=== PATIENT | male | born 1935 | race Caucasian/White ===

== ENCOUNTER 2020-02-19 23:06 | Inpatient (IN) | payer MEDICARE, BC ==
[~2020-02-19] VITALS: Ht 170.2 cm; Wt 67.0 kg
[~2020-02-19 23:06] MED LIST: ADDERALL30 MG PO; ASPIRIN 81M81 MG/TA2 PO; CARDIZEM 30MG T30 MG PO; CARDIZEM120 MG PO; FLOMAX 0.40.4 MG/CAP PO; LEXAPRO 10MG10 MG PO; MULTAQ400 MG PO; MULTI VITAMINS1 TAB PO; NORCO 325 MG-101 TAB PO; VIAGRA 25MG TAB25 MG PO; XARELTO10 MG PO
[2020-02-19 23:37] LABS: BASO % 0.4 % (0.0-2.0); EOS # 0.2 (0.0-0.7); EOS % 2.4 % (0-4.0); GRAN % 66.5 % (42.2-75.2); LYMPH # 1.5 (1.2-3.4); LYMPH % 19.5 % (20.0-51.0); MEAN CELL VOLUME 85 fl (80.0-100.0); MEAN CORPUSCULAR HGB CONC 32 g/dl (33.0-37.0); MEAN PLATELET VOLUME 9.1 fl (7.4-10.4); MONO # 0.8 (0.1-0.6); MONO % 10.8 % (1.7-9.3); PLATELET COUNT 372 K/mm3 (130-400); RED BLOOD COUNT 2.28 M/mm3 (4.20-5.60); REDCELL DISTRIBUTION WIDTH-CV 15.8 % (11.5-14.5)
[2020-02-19 23:39] LABS: INR 2.7 (0.8-3.0); PROTHROMBIN TIME 32.7 SECONDS (9.7-12.8)
[2020-02-19 23:42] LABS: ALANINE AMINOTRANSFERASE 10 U/L (4-49); ALBUMIN 3.3 gm/dL (3.5-5.0); ALKALINE PHOSPHATASE 56 U/L (50-136); ANION GAP 6 mmol/L (7-16); AST,SGOT 23 U/L (15-37); BILIRUBIN,TOTAL 0.3 mg/dL (0.0-1.0); BLOOD UREA NITROGEN 18 mg/dL (9-20); CALCIUM 8.5 mg/dL (8.4-10.2); CARBON DIOXIDE 22 mmol/L (22-30); CHLORIDE 106 mmol/L (98-107); CREATININE, serum 1.35 (0.66-1.25); GLUCOSE 113 mg/dL (74-106); LIPASE 105 U/L (23-300); POTASSIUM 3.6 mmol/L (3.4-5.0); SODIUM 133 mmol/L (137-145); TOTAL PROTEIN 6.1 gm/dL (6.4-8.2)
[2020-02-19 23:46] LABS: HEMATOCRIT 19.3 % (42.0-52.0); HEMOGLOBIN 6.2 g/dl (13.5-18.0); MEAN CORPUSCULAR HEMOGLOBIN 27 pg (27.0-31.0)
[2020-02-19 23:54] LABS: TROPONIN-I < 0.012 ng/mL (0.000-0.035)
[2020-02-20] VITALS (18 sets, daily range): BP systolic 100–136; BP diastolic 53–89; PULSE 74–92; TEMP 97.9–99.3
--- NOTE | 2020-02-20 02:00 | NUR ---
Patient to medical room 357 at this time with ER nurse. He is able to ambulate from stretcher to bed easily. He does not appear SOA at this time. He is satting 97% on RA. Lung sounds are clear, heart sounds are normal/regular. Pulses 2/2. Patient is alert and oriented but says he "has always been bad with answering questions". His complexion appears pale but no other skin issues are apparent. He does have a R groin hernia. He also has a RLQ colostomy with an additional opening on the L side of the abdomen, which is packed and covered with tape. No edema or pain is present. Will continue to monitor.
--- NOTE | 2020-02-20 02:30 | NUR ---
Blood transfusion (1 unit PRBC) started at this time. Patient educated about transfusion reaction symptoms. Will continue to monitor.
[2020-02-20] MEDS ORDERED: EFFEXOR-XR150 MG PO (03:14)
[2020-02-20] MEDS ORDERED: CARDIZEM CD 12120 MG PO (03:15)
--- NOTE | 2020-02-20 05:20 | NUR ---
Blood transfusion stopped at this time. Patient tolerated transfusion of 310 ml of PRBC well without any reaction symptoms. Will continue to monitor.
[2020-02-20 08:07] LABS: BASO % 0.5 % (0.0-2.0); EOS # 0.3 (0.0-0.7); EOS % 4.3 % (0-4.0); GRAN # 3.5 (1.4-6.5); LYMPH # 1.9 (1.2-3.4); LYMPH % 29.3 % (20.0-51.0); MEAN CELL VOLUME 84 fl (80.0-100.0); MEAN CORPUSCULAR HGB CONC 32 g/dl (33.0-37.0); MEAN PLATELET VOLUME 9.2 fl (7.4-10.4); MONO # 0.8 (0.1-0.6); MONO % 12.7 % (1.7-9.3); PLATELET COUNT 343 K/mm3 (130-400); RED BLOOD COUNT 2.46 M/mm3 (4.20-5.60); REDCELL DISTRIBUTION WIDTH-CV 15.9 % (11.5-14.5)
[2020-02-20 08:08] LABS: HEMOGLOBIN 6.6 g/dl (13.5-18.0); MEAN CORPUSCULAR HEMOGLOBIN 27 pg (27.0-31.0)
[2020-02-20 08:09] LABS: HEMATOCRIT 20.6 % (42.0-52.0)
[2020-02-20 08:11] LABS: CALCIUM 7.8 mg/dL (8.4-10.2); CREATININE, serum 1.25 (0.66-1.25); POTASSIUM 3.6 mmol/L (3.4-5.0)
--- NOTE | 2020-02-20 10:19 | NUR ---
Assessment complete. Pt resting in bed, easily arousable upon entry. Pt states that he feels fine this morning, he is just hungry. No pain or discomfort reported. Reported SOB while ambulating to the restrom but no issues while at rest. Pt was concerned about his anti-depressant medication, that was handled by MUNA Tavarez, medication is avaliable for him. IV site CD&I, currently infusing NS @ 125 ml/hr at this time. Spoke with his ex- and his daughter from [place] already today and they are aware of his situation. Pt is also aware of his POC. No other needs at this time. Call light is in reach.
[2020-02-20 10:57] LABS: HEMATOCRIT 20.7 % (42.0-52.0); HEMOGLOBIN 6.7 g/dl (13.5-18.0)
--- NOTE | 2020-02-20 11:30 | NUR ---
Transfusion started. Monitoring pt per protocol at this time. Pt states he feels fine.Infusion rate started at 60ml/hr
--- NOTE | 2020-02-20 11:50 | NUR ---
Infusion rate canged to 90 ml/hr. Pt is tolerating well. Vitals are stable. Continuing to monior at this time.
--- NOTE | 2020-02-20 12:15 | NUR ---
Infusion rate increase to 120 ml/hr. Pt continues to tolerate well. Will monitor.
--- NOTE | 2020-02-20 13:13 | NUR ---
SW met with patient at the door to discuss discharge planning. Patient currently lives alone in [facility]. He reported that he has been independent with no concerns. Patient does not have a DPOA, and he uses a walking stick occassionally. Patient reports that his PCP is Dr. Camp, and he does have " a bunch" of upcoming appointments. Patient reports that he gets his medications from [facility] with no concerns. Patient declined a need for any services at this time.
--- NOTE | 2020-02-20 17:31 | NUR ---
Patient has had a good day. He recieved another unit of blood and understands why this may help his symptoms. He tolerated the transfusion very well. His colostomy site is CD&I. He takes care of this himself and does not want help. He has requested a new hernia belt because the one he wore here got soiled on admit. I searched and asked all day but we do not have them here at the hospital. I will inform kiln packer. He has had no complaints of pain or discomfort all day. He requested more colostomy bags, 70mm. I was able to find these but they are apparently slightly different then then the ones he normally uses and he was not sure he would like the ones we had. States he brought some and will see if he needs them later. No other needs. Independent in the room with no issues. Fluids infusing at 75 ml/hr. Call light in reach.
[2020-02-20 18:48] LABS: HEMATOCRIT 22.7 % (42.0-52.0); HEMOGLOBIN 7.5 g/dl (13.5-18.0)
--- NOTE | 2020-02-20 20:00 | NUR ---
At time of assessment, patient is sitting up in bed awake. He is alert and oriented and does not complain of any pain. Heart sounds are normal/regular, lung sounds are clear, pulses are 2/2. No edema is present. Fluids are running at 75 ml/hr. No concerns at this time. Will continue to monitor.
[2020-02-21 03:08] LABS: HEMATOCRIT 22.3 % (42.0-52.0); HEMOGLOBIN 7.4 g/dl (13.5-18.0)
[2020-02-21 03:16] VITALS: BP 108/56; PULSE 73; TEMP 98
--- NOTE | 2020-02-21 06:08 | NUR ---
Patient has slept throughout the night with no complaints of pain or concerns. Hgb over the night was 7.5. MUNA Norris notified of this number and she did not request blood transfusion. Will continue to monitor.
[2020-02-21 07:10] LABS: BASO % 0.5 % (0.0-2.0); EOS # 0.5 (0.0-0.7); EOS % 8.1 % (0-4.0); GRAN # 2.9 (1.4-6.5); GRAN % 47.8 % (42.2-75.2); LYMPH # 1.8 (1.2-3.4); LYMPH % 29.8 % (20.0-51.0); MEAN CELL VOLUME 85 fl (80.0-100.0); MEAN CORPUSCULAR HGB CONC 33 g/dl (33.0-37.0); MEAN PLATELET VOLUME 9.2 fl (7.4-10.4); MONO # 0.8 (0.1-0.6); MONO % 13.3 % (1.7-9.3); PLATELET COUNT 322 K/mm3 (130-400); REDCELL DISTRIBUTION WIDTH-CV 15.7 % (11.5-14.5)
[2020-02-21 07:15] LABS: HEMATOCRIT 22.1 % (42.0-52.0); HEMOGLOBIN 7.3 g/dl (13.5-18.0); MEAN CORPUSCULAR HEMOGLOBIN 28 pg (27.0-31.0)
[2020-02-21 07:23] LABS: PROTHROMBIN TIME 12.2 SECONDS (9.7-12.8)
--- NOTE | 2020-02-21 07:47 | NUR ---
Report rcvd from JINA Pat.
--- NOTE | 2020-02-21 08:44 | NUR ---
Pt laying in bed, states "I'm not getting along with the broth anymore". He is saying he would like something more substantial. Pt has no other c/o pain or discomfort at this time. Call light at bedside. No further concerns.
[2020-02-21 08:55] VITALS: BP 102/59; PULSE 70; TEMP 97.1
[2020-02-21 11:48] VITALS: BP 123/69; PULSE 73; TEMP 97.6
[2020-02-21 16:45] VITALS: BP 114/61; PULSE 77; TEMP 97.3
--- NOTE | 2020-02-21 17:02 | NUR ---
Senior Art Director met with patient to discuss discharge planning. Patient lives alone in [place] and plans to return home upon discharge. Patient sees Dr. Marcelle Camp for primary care and obtains medications from [facility] pharmacy with no difficulties. Patient states he struggles with depression but has medication prescribed by Dr. Camp. Patient declined information about counseling or therapy. Patient has a walking stick he uses as needed and is independent with ADLS. Patient does not have DPOA-HC but was interested in obtaining the form. SW provided. Patient's daughter's Jana (ph#[phone]) and Leonarda (ph#[phone]) are his next of kin. SW to continue to follow as needed.
[2020-02-21 19:39] VITALS: BP 107/51; PULSE 81; TEMP 98.4
--- NOTE | 2020-02-21 19:44 | NUR ---
Report given to JINA Jasmine. Pt resting in room upon bedside report. Pt has no c/o of pain or discomfort at this time. No further concerns.
--- NOTE | 2020-02-21 20:15 | NUR ---
Pt resting in bed. No distress noted. Respirations even and unlabored. Lungs clear. [place], soft and nontender. BS+. RLQ colostomy- self care. BM is light brown in color. IV to R AC. Pt denies needs.
[2020-02-21 23:06] VITALS: BP 108/64; PULSE 81; TEMP 98.5
[2020-02-22] VITALS (7 sets, daily range): BP systolic 107–137; BP diastolic 58–76; PULSE 78–84; TEMP 97.8–99.5
[2020-02-22 06:34] LABS: BASO % 0.3 % (0.0-2.0); EOS # 0.5 (0.0-0.7); EOS % 5.8 % (0-4.0); GRAN # 4.9 (1.4-6.5); GRAN % 62.9 % (42.2-75.2); LYMPH # 1.5 (1.2-3.4); LYMPH % 19.5 % (20.0-51.0); MEAN CELL VOLUME 86 fl (80.0-100.0); MEAN CORPUSCULAR HGB CONC 32 g/dl (33.0-37.0); MEAN PLATELET VOLUME 9.1 fl (7.4-10.4); MONO # 0.9 (0.1-0.6); MONO % 11.2 % (1.7-9.3); PLATELET COUNT 352 K/mm3 (130-400); RED BLOOD COUNT 2.73 M/mm3 (4.20-5.60); REDCELL DISTRIBUTION WIDTH-CV 16.1 % (11.5-14.5)
[2020-02-22 06:45] LABS: CALCIUM 7.9 mg/dL (8.4-10.2); CREATININE, serum 1.22 (0.66-1.25); POTASSIUM 4.1 mmol/L (3.4-5.0)
[2020-02-22 07:05] LABS: HEMATOCRIT 23.5 % (42.0-52.0); HEMOGLOBIN 7.5 g/dl (13.5-18.0); MEAN CORPUSCULAR HEMOGLOBIN 27 pg (27.0-31.0)
--- NOTE | 2020-02-22 07:15 | NUR ---
Report given to Grace MURO. Pt has been dressed in a clean gown and pre procedure checklist completed. Pt has slept well throughout the night without complaints.
[2020-02-22] MEDS ORDERED: FERROUS SU325 MG/TAB PO (10:13)
[2020-02-22] MEDS ORDERED: PROTONIX 40MG T40 MG PO (10:14)
--- NOTE | 2020-02-22 12:15 | NUR ---
First visit from the mysql developer. No needs right now.
--- NOTE | 2020-02-22 16:15 | NUR ---
PATIENT DC TO HOME @ 5718 ACCOMPANIED BY FRIENDS. PRINTED DC INSTRUCTIONS REVIEWED WITH PATIENT ALL QUESTIONS AND CONCERNS ADDRESSED AT TEND OF REVIEW.
== END 2020-02-22 15:30 | disposition home or self-care (01) | DRG 378 ==
LOC: COL.ER 23:06 → MEDICAL 02-20 00:05
PROVIDERS: Emergency Medicine; Internal Medicine Gastroenterology; Nurse Practitioner Family; ADMIT Internal Medicine
PROC: 0DB78ZX Excision of Stomach, Pylorus, Via Natural or Artificial Opening Endoscopic, Diagnostic (ICD-10-PCS; principal; 2020-02-22 08:00)
DX: K26.4 Chronic or unspecified duodenal ulcer with hemorrhage (principal); I50.32 Chronic diastolic (congestive) heart failure; D64.9 Anemia, unspecified; I48.91 Unspecified atrial fibrillation; N40.0 Benign prostatic hyperplasia without lower urinary tract symptoms; K44.9 Diaphragmatic hernia without obstruction or gangrene; K31.89 Other diseases of stomach and duodenum; K29.30 Chronic superficial gastritis without bleeding; I34.0 Nonrheumatic mitral (valve) insufficiency; F32.9 Major depressive disorder, single episode, unspecified; Z93.3 Colostomy status; I25.2 Old myocardial infarction; Z86.73 Personal history of transient ischemic attack (TIA), and cerebral infarction without residual deficits; Z79.82 Long term (current) use of aspirin
CPT/HCPCS: 99223-AI; 99232-AI; 99239; C9113; J2704; J7030; P9016

== ENCOUNTER 2023-08-20 11:39 | Observation (INO) | payer MEDICARE, BC ==
[~2023-08-20] VITALS: Ht 170.2 cm; Wt 57.1 kg
[~2023-08-20 11:39] MED LIST changes: +CARDIZEM CD 12120 MG PO; +EFFEXOR-XR150 MG PO; +FERROUS SU325 MG/TAB PO; +PROTONIX 40MG T40 MG PO
[2023-08-20 12:37] LABS: BASO % 0.4 % (0.0-2.0); EOS # 0.1 K/mm3 (0.0-0.7); EOS % 1.9 % (0.0-4.0); GRAN # 4.6 K/mm3 (1.4-6.5); GRAN % 62.2 % (42.2-75.2); HEMATOCRIT 45.1 % (42.0-52.0); HEMOGLOBIN 15.3 g/dl (13.5-18.0); LYMPH # 1.8 K/mm3 (1.2-3.4); LYMPH % 24.5 % (20.0-51.0); MEAN CELL VOLUME 87 fl (80.0-100.0); MEAN CORPUSCULAR HEMOGLOBIN 30 pg (27-31); MEAN CORPUSCULAR HGB CONC 34 g/dl (33.0-37.0); MEAN PLATELET VOLUME 9.6 fl (7.4-10.4); MONO # 0.8 K/mm3 (0.1-0.6); MONO % 10.7 % (1.7-9.3); PLATELET COUNT 247 K/mm3 (130-400); RED BLOOD COUNT 5.19 M/mm3 (4.20-5.60); REDCELL DISTRIBUTION WIDTH-CV 13.9 % (11.5-14.5)
[2023-08-20 12:40] LABS: INR 1.3 (0.8-3.0); PROTHROMBIN TIME 13.8 SECONDS (9.7-12.8)
[2023-08-20 12:53] LABS: ALBUMIN 3.6 gm/dL (3.4-4.8); BILIRUBIN,TOTAL 0.4 mg/dL (0.2-1.2); CALCIUM 9.8 mg/dL (8.4-10.2); CREATININE, serum 1.61 mg/dL (0.72-1.25); POTASSIUM 3.6 mmol/L (3.5-4.5)
[2023-08-20] MEDS ORDERED: ELIQUIS 5MG PO (12:55)
[2023-08-20] MEDS ORDERED: LIPITOR 40MG TA40 MG PO (12:55)
[2023-08-20] MEDS ORDERED: PRILOSEC 20MG20 MG PO (12:56)
[2023-08-20 12:58] LABS: TROPONIN-I 0.011 ng/mL (0.00-0.033)
[2023-08-20 13:26] LABS: COLLECTION METHOD CLEAN CATCH
[2023-08-20] MEDS ORDERED: ASPIRIN E.C. 8181 MG PO (13:27)
[2023-08-20] MEDS ORDERED: ALERTNESS AID200 MG PO (13:32)
[2023-08-20 13:42] LABS: URINE APPEARANCE Clear (CLEAR/HAZY); URINE COLOR Yellow (YELLOW)
[2023-08-20 13:43] LABS: SQUAMOUS EPITHELIAL 0-2 /hpf (0-10); URINE BLOOD Negative (NEGATIVE); URINE GLUCOSE Negative (NEGATIVE); URINE KETONE TRACE (NEGATIVE); URINE NITRATE Negative (NEGATIVE); URINE PROTEIN(semi-quant) Negative (NEGATIVE); URINE RBC None Seen /hpf (0-2)
--- NOTE | 2023-08-20 13:43 | NUR ---
SUPERVISOR COFFEE received a telephone call from the ED PA that pt was brought into the ER by his neighbor, Unique Ivey, ph# [phone], this afternoon. He presented with AMS, unkempt with a strong body odor, a colostomy filled stool and no shoes. Leaves and debris were on his back and he c/o right side weakness. Ms. Ivey stated she has known pt for 2 years and he visits her whenever he needs assistance. Pt lives alone in his own home,and has a vehicle, but his license has been suspended for over 2 years. Pt has his medications and groceries delivered to his home. He ambulates with a walking stick. Ms. Ivey reports during the past year, APS and the police have been involved b/c of his deplorable living conditions. Pt is a hoarder, and he has no running water. When offered help by community agencies he refuses. Pt is and has 3 adult daughters, Anna Cassidy lives in , ph# [phone], and Jana Bruno lives in [place], ph# [phone]. His third daughter, Yael Briscoe lives in [place], pt reports he is astranged from her. SUPERVISOR COFFEE reviewed pt's clinical record dated back to 2014. At that time he was living with his daughter, Jana, and suffered a CVA. He spent a few days in rehab @ [facility] post-discharge then returned home. Despite pt's AMS, he was oriented to person, time, place and situation when SUPERVISOR COFFEE conducted a mini mental status exam on him. He gave the current month, day and year and he knew the name of the hospital he was currently in. However, pt admitted he is forgetful sometimes. SUPERVISOR COFFEE telephoned next of kin, Yary Cassidy, who happens to be pt's ex-. She stated, "I don't want to have anything to do with that man and neither does any of his daughters. I have not spoken to him for many years." When SUPERVISOR COFFEE inquired why, ex- stated, "I don't feel comfortable talking about family matters," but stated she will call her daughter, Jana to see if she will agree to be "next of kin." SUPERVISOR COFFEE gave ex- contact info for daughter to call if she so chooses. SUPERVISOR COFFEE received a telephone call from pt's , Angelo an hour later. He agreed to be the publicity person, stating pt's relationship with his daughter, Jana has been difficult over the past 2 years. SUPERVISOR COFFEE advised pt of his ex-'s decision and he shrugged his shoulders and stated, "I haven't spoken to her for years." Pt did not go into any detail as to why he and ex- are not speaking. Pt reports his primary care provider is Marcelle Camp, ph# and he fills his prescriptions @ [facility]. His neighbor, Unique Ivey agreed to transport pt home if he is not admitted to the hospital. Addenum: To determine if pt has an active APS case, SUPERVISOR COFFEE left an VM message with the APS Job Press Operator, Sherri Williamson, ph# [phone] to return call. No other concerns noted.
--- NOTE | 2023-08-20 15:22 | NUR ---
KENY received a telephone call from pt's daughter, Yael Briscoe in [place], ph# [phone] this afternoon. She stated she will be the contact acid plant operator helper for pt. She shared she pays pt's insurance premimums monthly and confirmed, pt receives Medicare Part A and B as well as [facility]. She indicated she is not pt's HCPOA b/c pt refuses to complete paperwork. Ms. Briscoe stated she will call pt later today to discuss implementing an advance directive. SW will continue to follow.
[2023-08-20 16:28] VITALS: BP 148/78; PULSE 88; TEMP 97.8
[2023-08-20 17:21] VITALS: BP_SYST 148
--- NOTE | 2023-08-20 17:27 | NUR ---
PATIENT IS A NEW ADMIT TO THE UNIT. [place] AND DOES NOT COMPLAIN OF ANY PAIN. VSS. PATIENT IS NOT CONFUSED AT THIS TIME. PATIENT IS SBA TO THE RESTROOM. FALL SIGN OUTSIDE THE DOOR. CALL LIGHT NEXT TO THE PATIENT .X3 BED RAILS UP [facility] ALARM.
[2023-08-20 18:52] VITALS: BP 142/73; PULSE 89; TEMP 97.7
--- NOTE | 2023-08-20 20:00 | NUR ---
Assessment complete. A&Ox4. Denies pain/nausea/shortness of breath. VS stable. Patient is hard of hearing but currently not confused. Noted to have an ulcer/hole to left upper quadrant as well as a colostomy to right lower quadrant. Tele applied. Currently on RA. Left forearm INT flushes without difficulty. Plan of care discussed for this shift to include meds/pain control/calling for questions/concerns. Verbalizes understanding. Call light in reach/bed alarm on. Will monitor.
[2023-08-20 22:13] VITALS: BP_SYST 142
[2023-08-20 23:44] VITALS: BP 118/61; PULSE 77; TEMP 97.9
[2023-08-21] VITALS (12 sets, daily range): BP systolic 103–147; BP diastolic 61–90; PULSE 66–91; TEMP 97.8–98.3
--- NOTE | 2023-08-21 05:04 | NUR ---
Patient had an uneventful night. Was A&Ox4. Denied pain/nausea/shortness of breath. VS remained stable. TELE reporting SR> Currently on RA. Denies current needs. Call light in reach. Will monitor.
[2023-08-21 06:01] LABS: MEAN CELL VOLUME 89 fl (80.0-100.0); MEAN CORPUSCULAR HGB CONC 33 g/dl (33.0-37.0); MEAN PLATELET VOLUME 9.8 fl (7.4-10.4); PLATELET COUNT 184 K/mm3 (130-400); RED BLOOD COUNT 4.03 M/mm3 (4.20-5.60); REDCELL DISTRIBUTION WIDTH-CV 14.2 % (11.5-14.5)
[2023-08-21 06:03] LABS: HEMATOCRIT 35.7 % (42.0-52.0); HEMOGLOBIN 11.8 g/dl (13.5-18.0); MEAN CORPUSCULAR HEMOGLOBIN 29 pg (27-31)
[2023-08-21 07:03] LABS: CALCIUM 8.4 mg/dL (8.4-10.2); CREATININE, serum 1.61 mg/dL (0.72-1.25); MAGNESIUM 1.9 mg/dL (1.6-2.6); PHOSPHOROUS 3.2 mg/dL (2.3-4.7); POTASSIUM 4.2 mmol/L (3.5-4.5)
--- NOTE | 2023-08-21 12:07 | NUR ---
TELEPHONIC NURSE CASE MANAGER received a returned telephone call from [facility] Communications Executive, Adrienneelgin MorisCarlospeggy, ph# [phone], this morning. She reports she closed pt's case back in April, after working with him for 6 months due to self-neglect. Ms. Hyman reported that pt was basically uncooperative with accepting assistance, refused all services, except for MOW. Advised her, pt has been admitted and she may receive a referral from the medicine SW prior to discharge. No other concerns noted.
--- NOTE | 2023-08-21 12:25 | NUR ---
RETAIL EXPERIENCE SPECIALIST reviewed pt's clinical record before rounds this morning and noted pt was admitted yesterday after experiencing a cardiac shortly after taking a dose of Sildenafil. During rounds with the attending MD, comfort care and who would be the decision-maker was discussed. RETAIL EXPERIENCE SPECIALIST learned from pt's eldest daughter, Megan Sher, ph# [phone], that pt and GF, Enid Galvez are engaged. They have been sharing a home together in the past 3 years. Pt also has a 47 yo son, named Angelo Galvez with GF, and another daughter, Megan An's sister, from a previous marriage. RETAIL EXPERIENCE SPECIALIST was in the room when Nurse Hearing Care Practitioner provided education to the pt's daughter, Megan and GF re: the [place] State Law on common-law marriage and who could actually make the end of life decision. Daughter and GF appeared to have family tension, but agreed to transition pt to comfort care. Fyffe from Nurse Hearing Care Practitioner later, that a family meeting was initially scheduled for 1 pm to ensure all of pt's children were told and on board with comfort measures. However, family came earlier then planned. Attending MD spoke with them and they collectively decided to transition pt to comfort care. Nurse Hearing Care Practitioner also informed RETAIL EXPERIENCE SPECIALIST that pt will be extubated later after all family members had a chance to visit. No other concerns noted.
--- NOTE | 2023-08-21 15:35 | NUR ---
transportation worker met with patient to discuss discharge planning. Patient confirmed he lives alone in [place]. Patient reports his primary care physician was Dr. Camp but he missed too many appointments now, so he sees Dr. Casillas at [facility]. SW will follow up with [facility] to confirm whom his primary care physician is. Patient's pharmacy is [facility]. SW discussed DPOA-HC, patient initially expressed he did not trust anyone to make those decisions for him but later in the conversation expressed he knew he needed to put a DPOA-HC in place as it was important. SW left information regarding DPOA-HC with patient and answered questions regarding the form and will follow up. Patient was considering appointing Yael as his primary DPOA-HC but wanted to look over the information first. Patient reports he has a cane and walker at home but does not use them. Patient reported he has had APS reports in the past due to his living conditions. Patient reports he is embarrassed by the condition it is in. SW mentioned Home Health services and explained what they do. Patient expressed he did not want those services at this time due to his condition of the home, he reported he did not want anyone in the home. Patient reports there is a walking path in the home but there is a lot of "clutter". SW asked if he could fit his walker through the "clutter", patient expressed he could if he wanted to. SW discussed rodent exterminator care facilities and patient declined going to a facility. Patient expressed he wants to go home. Patient expressed he would be open to home health but only after his home was cleaned up. FINN contacted Amarilis at [facility] and confirmed patient sees Chel Jay APRN for primary care needs. Amarilis expressed patient has a history of a stroke and depression. Amarilis expressed patient is very hard to get in touch with and missed a lot of appointments. Amarilis notes patient has an appointment on Friday at 3 pm. Patient does not have a DPOA-HC on file at the physician's office and they have mailed information to his home on this. FINN contacted Masoud from APS regarding the concerns of the patient being able to properly care for himself. Masoud expressed they have a history with the patient and will look out for the report. FINN made an APS report, Intake ID [id number]. FINN spoke with patient's daughter (best point of contact) Yael Briscoe, P# . Yael expressed she has had issues with her father accepting any help or services to clean his residence. Yael has also tried to assist patient with DPOA-HC but he refused. FINN provided information regarding home health services and she will mention it to the patient again tomorrow but he declined this morning. Yael confirmed patient's medications are being filled as she receives the bills to pay. Yael reports she has attempted to assist clean his home but he refuses to allow anyone inside now, she has not been in the home in years because of this. FINN provided her direct line for any additional questions. Discharge Plan: Home
--- NOTE | 2023-08-21 20:00 | NUR ---
UPON SHIFT ASSESSMENT, FRANK WAS UP IN BED AND TALKATIVE. HE WAS AXO X 3 AND VSS ARE WNL. HIS OSTOMY BAG WAS FULL AND CHANGED, CONTAINING 200 ML OF BM THAT WAS OF NORMAL COLOR. AFFECT WAS NORMAL AND NO OUTWARD SIGNS OF ALTERED MENTAL STATUS NOTED. FRANK C/O FATIGUE AND REQUESTED ICE CREAM FOR A SNACK BEFORE BED. CALL LIGHT WITHIN REACH, BED ALARM ON.
[2023-08-22] VITALS (7 sets, daily range): BP systolic 118–159; BP diastolic 76–91; PULSE 74–89; TEMP 97.3–98
[2023-08-22 06:09] LABS: HEMATOCRIT 37.3 % (42.0-52.0); HEMOGLOBIN 12.3 g/dl (13.5-18.0); MEAN CELL VOLUME 89 fl (80.0-100.0); MEAN CORPUSCULAR HEMOGLOBIN 29 pg (27-31); MEAN CORPUSCULAR HGB CONC 33 g/dl (33.0-37.0); MEAN PLATELET VOLUME 9.9 fl (7.4-10.4); PLATELET COUNT 177 K/mm3 (130-400); RED BLOOD COUNT 4.18 M/mm3 (4.20-5.60); REDCELL DISTRIBUTION WIDTH-CV 14.3 % (11.5-14.5)
[2023-08-22 06:28] LABS: CALCIUM 8.5 mg/dL (8.4-10.2); CREATININE, serum 1.2 mg/dL (0.72-1.25)
--- NOTE | 2023-08-22 06:30 | NUR ---
GUY HAD AN UNEVENTFUL NIGHT AND SLEPT SOUNDLY. HE EAGERLY AWAITS DISCHARGE. DENIES SOA, PAIN AND IS AXO X 4. VSS ARE WNL, CALL LIGHT WITHIN REACH.
--- NOTE | 2023-08-22 07:00 | NUR ---
PT RESTING IN BED. PT WATCHING TV. PT IN ON RA. PT IS SR ON TELE. PT IS AXOX4 AND HAS CALL LIGHT WITHIN REACH. PT INSTRUCTED TO CALL WITH ALL NEEDS. BEDALARM ACTIVE. FALL PRECAUTIONS IN PLACE.
[2023-08-22] MEDS ORDERED: FLOMAX 0.40.4 MG/CAP PO (13:05)
[2023-08-22] MEDS ORDERED: LIPITOR 40MG TA40 MG PO (13:05)
[2023-08-22] MEDS ORDERED: ELIQUIS 5MG PO (13:05)
[2023-08-22] MEDS ORDERED: ASPIRIN E.C. 8181 MG PO (13:06)
[2023-08-22] MEDS ORDERED: EFFEXOR-XR150 MG PO (13:06)
[2023-08-22] MEDS ORDERED: PRILOSEC 20MG20 MG PO (13:06)
[2023-08-22] MEDS ORDERED: ALERTNESS AID200 MG PO (13:06)
[2023-08-22] MEDS ORDERED: CARDIZEM CD 12120 MG PO (13:06)
--- NOTE | 2023-08-22 16:05 | NUR ---
PT'S FRIEND/NEIGHBOR KATIE HERE TO TRANSPORT PT HOME. PT HAS HOME MEDICAIONS FROM PHARMACY. PT HAS ALL DISCHARGE PAPERWORK.
--- NOTE | 2023-08-22 16:31 | NUR ---
barrow worker helper contacted [facility]'s pharmacy whom expressed patient is not medication compliant and he receives his colostomy supplies through [facility]. [facility]'s pharmacist expressed they have tried numerous times to call him to fill orders and deliver medications but he does not answer phone or his door. FINN contacted [facility] pharmacy whom expressed patient has not had his colostomy order filled since April. [facility] had similar issues as [facility] where the patient does not answer his door or his phone. [facility] expressed they were unable to deliver to the hospital and they have to have patient's signature so they cannot drop off the order at his house. SW updated patient's daughter, Yael, on this information. Yael expressed she was familiar with this as he does not answer the phone for her. FINN contacted the neighbor, Unique, to determine what all she assists patient with. Unique expressed she will transport him home from the hospital and will assist when she can but she has a family and time broker job, so she is unable to transport him to all appointments. Unique expressed she is aware social workers from [facility] have worked with him in the past and he refuses assistance. FINN met with patient regarding medication and colostomy supply compliance. Patient expressed it was a pharmacy issue and he tries to get to them when they deliver but they dont wait. SW recommended scheduling a time, setting an alarm for the time and waiting near his door for the delivery. SW expressed she understood he may not want them to see into the home but it is very important he receives his supplies. Patient understood. Patient still declines home health due to his living conditions. Patient declined DPOA-HC as well. FINN notified patient of appointment on Friday at 3 pm. Patient understood. FINN contacted neighbor and she will be able to transport patient home at discharge. FINN notified nurse. FINN, Katelyn Briscoe, contacted [facility]'s pharmacy to see if they could deliver prescriptions to the hospital and they could between 4-6 pm. FINN was contacted by [facility] after receiving patient's prescriptions and expressed patient already filled his prescription on Friday prior to coming to the hospital. FINN notified patient. Patient understood. FINN notified nursing. Nursing contacted neighbor and he will be discharging soon. Discharge Plan: Home
== END 2023-08-22 16:05 | disposition home or self-care (01) ==
LOC: COL.ER 11:39 → MEDICAL 15:23
PROVIDERS: Physician Assistant; ADMIT Internal Medicine
DX: N17.9 Acute kidney failure, unspecified (principal); I50.30 Unspecified diastolic (congestive) heart failure; R53.1 Weakness; I48.0 Paroxysmal atrial fibrillation; N18.9 Chronic kidney disease, unspecified; N40.0 Benign prostatic hyperplasia without lower urinary tract symptoms; F32.A Depression, unspecified; Z79.82 Long term (current) use of aspirin; Z79.01 Long term (current) use of anticoagulants; Z79.899 Other long term (current) drug therapy; Z98.890 Other specified postprocedural states
CPT/HCPCS: G0378; J7030; Q9967

== ENCOUNTER 2023-10-03 14:01 | Emergency (ER) | payer MEDICARE, BC ==
[~2023-10-03] VITALS: Ht 167.6 cm; Wt 63.6 kg
[~2023-10-03 14:01] MED LIST changes: +ALERTNESS AID200 MG PO; +ASPIRIN E.C. 8181 MG PO; +ELIQUIS 5MG PO; +LIPITOR 40MG TA40 MG PO; +PRILOSEC 20MG20 MG PO
[2023-10-03 14:03] VITALS: TEMP 97.8
[2023-10-03 14:45] LABS: BASO % 0.3 % (0.0-2.0); EOS % 0.3 % (0.0-4.0); GRAN # 6.7 K/mm3 (1.4-6.5); GRAN % 75.9 % (42.2-75.2); HEMOGLOBIN 13.7 g/dl (13.5-18.0); LYMPH # 1.2 K/mm3 (1.2-3.4); LYMPH % 13.4 % (20.0-51.0); MEAN CELL VOLUME 86 fl (80.0-100.0); MEAN CORPUSCULAR HEMOGLOBIN 30 pg (27-31); MEAN CORPUSCULAR HGB CONC 34 g/dl (33.0-37.0); MEAN PLATELET VOLUME 9.9 fl (7.4-10.4); MONO # 0.9 K/mm3 (0.1-0.6); MONO % 9.8 % (1.7-9.3); PLATELET COUNT 261 K/mm3 (130-400); RED BLOOD COUNT 4.63 M/mm3 (4.20-5.60); REDCELL DISTRIBUTION WIDTH-CV 13.8 % (11.5-14.5)
[2023-10-03 14:59] LABS: ALBUMIN 3.5 gm/dL (3.4-4.8); BILIRUBIN,TOTAL 0.9 mg/dL (0.2-1.2); CALCIUM 8.9 mg/dL (8.4-10.2); CREATININE, serum 1.76 mg/dL (0.72-1.25); POTASSIUM 3.8 mmol/L (3.5-4.5); TOTAL PROTEIN 6.9 gm/dL (6.2-8.1)
[2023-10-03 15:04] LABS: TROPONIN-I 0.018 ng/mL (0.00-0.033)
[2023-10-03 16:33] LABS: COLLECTION METHOD CLEAN CATCH
[2023-10-03 16:52] LABS: AMORPHOUS CRYSTAL Present (NOT PRESENT); PH 5.5 (5.0-8.5); URINE APPEARANCE Turbid (CLEAR/HAZY); URINE BLOOD 3+ (NEGATIVE); URINE COLOR OTHER (YELLOW); URINE GLUCOSE Negative (NEGATIVE); URINE KETONE Negative (NEGATIVE); URINE NITRATE Negative (NEGATIVE); URINE PROTEIN(semi-quant) Negative (NEGATIVE); URINE RBC 20-50 /hpf (0-2); URINE UROBILINOGEN 0.2 E.U/dL (0.2-1.0)
[2023-10-03 18:49] VITALS: BP 153/91; PULSE 86
== END 2023-10-03 19:24 | disposition home or self-care (01) ==
LOC: COL.ER 14:01
PROVIDERS: Emergency Medicine
DX: R42 Dizziness and giddiness (principal); R79.89 Other specified abnormal findings of blood chemistry; N20.1 Calculus of ureter
CPT/HCPCS: J7120; Q9967